=== PATIENT | male | born 1950 | race Caucasian/White ===

== ENCOUNTER → 2017-07-15 | Day surgery (SDC) | payer OTHER ==
[~2017-07-15] MED LIST: ALDACTONE25 MG PO; CATAPRES0.3 M1 PO; DIOVAN HCT 320/1 TA2 PO; LIPITOR40 MG PO; SINGULAIR10 MG PO; TAMS0.4C PO; TERAZOSIN HCL2 M1 PO; TOPROL XL100 M1 PO; TRICOR145 MG PO
== END | disposition home or self-care (01) ==
LOC: AMB-ENDOS 05:55
DX: D12.3 Benign neoplasm of transverse colon (principal); K57.30 Diverticulosis of large intestine without perforation or abscess without bleeding; K64.1 Second degree hemorrhoids

== ENCOUNTER 2019-11-30 06:38 | Day surgery (SDC) | payer OTHER | END 2019-11-30 13:00 | disposition home or self-care (01) | LOC: AMB-ENDOS 06:38 | PROVIDERS: ATTEND Colon & Rectal Surgery | DX: D12.3 Benign neoplasm of transverse colon (principal); K64.1 Second degree hemorrhoids; Z20.828 Contact with and (suspected) exposure to other viral communicable diseases ==